=== PATIENT | female | born 1930 | race Caucasian/White ===

== ENCOUNTER 2017-03-13 11:46 | Inpatient (IN) | payer OTHER, MEDICAID ==
[~2017-03-13] VITALS: Ht 157.5 cm; Wt 47.6 kg
[2017-03-13 11:57] VITALS: BP_SYST 152
[2017-03-13 13:02] LABS: BASOPHILS % (AUTO) 0.2 % (0.0-2.0); EOSINOPHILS % (AUTO) 0.6 % (0.0-4.0); HEMOGLOBIN 12.9 g/dL (12.0-16.0); LYMPHOCYTES # (AUTO) 0.6 K/uL (1.0-5.5); LYMPHOCYTES % (AUTO) 11.1 % (20.5-51.5); MEAN CORPUSCULAR HEMOGLOBIN 30 pg (27-31); MEAN CORPUSCULAR HGB CONC 33 % (32-36); MEAN CORPUSCULAR VOLUME 91 fL (79.0-98.0); MONOCYTES # (AUTO) 0.5 K/uL (0.0-1.0); MONOCYTES % (AUTO) 8.3 % (1.7-9.3); NEUTROPHILS # (AUTO) 4.7 K/uL (1.8-7.7); NEUTROPHILS % (AUTO) 79.8 % (40.0-70.0); PLATELET COUNT (AUTO) 106 K/uL (130-430); RED BLOOD CELL COUNT(AUTO) 4.28 MIL/uL (4.2-6.2); RED CELL DISTRIBUTION WIDTH 12.8 % (9.0-15.0); WHITE BLOOD COUNT (AUTO) 5.8 K/uL (4.8-10.8)
[2017-03-13 13:19] LABS: ANION GAP 11 (5-15); CALCIUM 9.2 mg/dL (8.4-11.0); CHLORIDE 100 mmol/L (98-107); CREATININE 0.94 mg/dL (0.55-1.30); GLUCOSE 343 mg/dL (70-99); POTASSIUM 4.3 mmol/L (3.5-5.1); SODIUM SERUM 138 mmol/L (136-145); UREA NITROGEN, BLOOD 17 mg/dL (8-21)
[2017-03-13 13:43] LABS: TOTAL BILIRUBIN 0.5 mg/dL (0.0-1.0)
[2017-03-13 13:44] LABS: ALBUMIN 3.8 g/dL (3.4-4.8); ASPARTATE AMINOTRANSFERASE 12 U/L (10-37)
[2017-03-13 13:53] LABS: ALANINE AMINOTRANSFERASE 15 U/L (12-78)
[2017-03-13] MEDS ORDERED: NACL 0.9% 1,000 ML IV ONE (14:30)
[2017-03-13] MEDS ORDERED: GLUXR500 PO (14:36)
[2017-03-13] MEDS ORDERED: MEMA10TA12 PO (14:36)
[2017-03-13] MEDS ORDERED: DONE10TA44 PO (14:36)
[2017-03-13] MEDS ORDERED: MORPHINE 2 MG/ML INJ. SYRINGE IVP ONE (14:45)
[2017-03-13 15:13] LABS: BILIRUBIN,URINE NEGATIVE (NEGATIVE); BLOOD, URINE 1+ (NEGATIVE); CLARITY/URINE CLEAR (CLEAR); COLOR,URINE YELLOW (YELLOW); GLUCOSE,URINE 3+ (NEGATIVE); KETONES,URINE NEGATIVE (NEGATIVE); LEUKOCYTE ESTERASE ,URINE NEGATIVE (NEGATIVE); NITRITE, URINE NEGATIVE (NEGATIVE); PROTEIN URINE NEGATIVE (NEGATIVE); UROBILINOGEN,URINE 0.2 (0.2-1.0)
[2017-03-13 15:23] LABS: BACTERIA,URINE MODERATE /HPF (None Seen); MUCUS,URINE 1+ /LPF (None Seen)
[2017-03-13 15:32] VITALS: BP_SYST 144
[2017-03-13 17:39] LABS: BILIRUBIN,URINE NEGATIVE (NEGATIVE); BLOOD, URINE TRACE (NEGATIVE); CLARITY/URINE CLEAR (CLEAR); COLOR,URINE STRAW (YELLOW); GLUCOSE,URINE 2+ (NEGATIVE); KETONES,URINE NEGATIVE (NEGATIVE); LEUKOCYTE ESTERASE ,URINE NEGATIVE (NEGATIVE); NITRITE, URINE NEGATIVE (NEGATIVE); PROTEIN URINE NEGATIVE (NEGATIVE); UROBILINOGEN,URINE 0.2 (0.2-1.0)
[2017-03-13] MEDS: cefTRIAXone 1 GM IVPB PREMIX 50 ML IV SCH (17:39)
[2017-03-13] MEDS: D5/0.45 NS 1,000 ML IV SCH (17:39)
[2017-03-13 17:40] LABS: BACTERIA,URINE FEW /HPF (None Seen); MUCUS,URINE None Seen /LPF (None Seen); RBC,URINE NONE SEEN /HPF (0-3); WBC,URINE NONE SEEN /HPF (0-3)
[2017-03-13] MEDS ORDERED: LORazepam 2 MG/ML VIAL IVP PRN (19:30)
[2017-03-13 20:00] VITALS: BP_SYST 146
[2017-03-13] MEDS: DONEPEZIL HCL 5 MG TABLET (ARICEPT) PO SCH (20:44)
[2017-03-13] MEDS: MEMANTINE HCL 5 MG TABLET PO SCH (20:45)
[2017-03-13] MEDS: INSULIN REGULAR, HUMAN 100 UNITS/ML, 10 ML VIAL (novoLIN R) SUBCUT PRN (20:54)
[2017-03-14 00:04] VITALS: BP_SYST 133
[2017-03-14 04:11] VITALS: BP_SYST 108
[2017-03-14] MEDS: INSULIN REGULAR, HUMAN 100 UNITS/ML, 10 ML VIAL (novoLIN R) SUBCUT PRN ×4 (06:03→22:00)
[2017-03-14] MEDS: D5/0.45 NS 1,000 ML IV SCH ×2 (06:09→21:56)
[2017-03-14] MEDS: MEMANTINE HCL 5 MG TABLET PO SCH ×2 (08:09→21:55)
[2017-03-14 08:43] VITALS: BP_SYST 121
[2017-03-14 12:00] VITALS: BP_SYST 130
[2017-03-14 17:16] VITALS: BP_SYST 139
[2017-03-14] MEDS: cefTRIAXone 1 GM IVPB PREMIX 50 ML IV SCH (17:37)
[2017-03-14 20:00] VITALS: BP_SYST 135
[2017-03-14] MEDS: DONEPEZIL HCL 5 MG TABLET (ARICEPT) PO SCH (21:56)
[2017-03-15] VITALS (7 sets, daily range): BP systolic 119–158
[2017-03-15] MEDS: IPRATROPIUM BROM 0.5 MG/2.5 ML VIAL.NEB (ATROVENT) INH SCH ×4 (03:00→15:55)
[2017-03-15] MEDS: INSULIN REGULAR, HUMAN 100 UNITS/ML, 10 ML VIAL (novoLIN R) SUBCUT PRN ×3 (06:17→16:56)
[2017-03-15] MEDS: MEMANTINE HCL 5 MG TABLET PO SCH (08:24)
[2017-03-15] MEDS: D5/0.45 NS 1,000 ML IV SCH (16:30)
[2017-03-15] MEDS: cefTRIAXone 1 GM IVPB PREMIX 50 ML IV SCH (16:56)
== END 2017-03-15 17:45 | disposition home or self-care (01) | DRG 690 ==
LOC: SED 11:46 → STU 14:29 → SMU 03-15 15:26
PROVIDERS: ADMIT Internal Medicine Infectious Disease; ATTEND Internal Medicine Infectious Disease
DX: N39.0 Urinary tract infection, site not specified (principal); J44.9 Chronic obstructive pulmonary disease, unspecified; G30.9 Alzheimer's disease, unspecified; F02.80 Dementia in other diseases classified elsewhere, unspecified severity, without behavioral disturbance, psychotic disturbance, mood disturbance, and anxiety; M19.90 Unspecified osteoarthritis, unspecified site; W01.0XXA Fall on same level from slipping, tripping and stumbling without subsequent striking against object, initial encounter; E11.9 Type 2 diabetes mellitus without complications; I10 Essential (primary) hypertension; M25.561 Pain in right knee; R26.2 Difficulty in walking, not elsewhere classified; R04.0 Epistaxis; Y93.89 Activity, other specified; Y92.89 Other specified places as the place of occurrence of the external cause; Y99.8 Other external cause status; Z83.3 Family history of diabetes mellitus; Z87.891 Personal history of nicotine dependence; Z90.710 Acquired absence of both cervix and uterus
CPT/HCPCS: 36415; 70450-TC; 71010; 73060-TC; 73090; 80053; 81000-TC; 82550-TC; 82962; 83036; 84484; 85025; 87040-TC; 87081; 87086; 93005; 93306; 93880; 94640; 96361; 96374; 96375; 97110-GP; 97530-GP; 99285; J0696; J1815; J2060; J2270; J7030

== ENCOUNTER 2018-05-30 10:53 | Emergency (ER) | payer OTHER, MEDICAID ==
[~2018-05-30] VITALS: Ht 157.5 cm; Wt 45.4 kg
[~2018-05-30 10:53] MED LIST: DONE10TA44 PO; GLUXR500 PO; MEMA10TA PO
[2018-05-30 10:55] VITALS: BP_SYST 130
[2018-05-30] MEDS ORDERED: NACL 0.9% 1,000 ML IV ONE (11:04)
[2018-05-30] MEDS ORDERED: DONE10TA44 PO (11:15)
[2018-05-30] MEDS ORDERED: GLIP5TAB13 PO (11:15)
[2018-05-30] MEDS ORDERED: ALPR0.5T PO (11:15)
[2018-05-30] MEDS ORDERED: METF1000 PO (11:15)
[2018-05-30 11:33] LABS: BASOPHILS % (AUTO) 0.4 % (0.0-2.0); HEMATOCRIT 39.2 % (36-48); HEMOGLOBIN 12.9 g/dL (12.0-16.0); LYMPHOCYTES # (AUTO) 1.6 K/uL (1.0-5.5); LYMPHOCYTES % (AUTO) 34.5 % (20.5-51.5); MEAN CORPUSCULAR HEMOGLOBIN 31 pg (27-31); MEAN CORPUSCULAR HGB CONC 33 % (32-36); MEAN CORPUSCULAR VOLUME 93 fL (79.0-98.0); MONOCYTES # (AUTO) 0.4 K/uL (0.0-1.0); MONOCYTES % (AUTO) 8.2 % (1.7-9.3); NEUTROPHILS # (AUTO) 2.5 K/uL (1.8-7.7); NEUTROPHILS % (AUTO) 55.9 % (40.0-70.0); PLATELET COUNT (AUTO) 140 K/uL (130-430); RED BLOOD CELL COUNT(AUTO) 4.21 MIL/uL (4.2-6.2); RED CELL DISTRIBUTION WIDTH 13.1 % (9.0-15.0); WHITE BLOOD COUNT (AUTO) 4.5 K/uL (4.8-10.8)
[2018-05-30 11:57] LABS: ALANINE AMINOTRANSFERASE 12 U/L (12-78); ALBUMIN 3.6 g/dL (3.4-4.8); ALCOHOL, BLOOD < 3 mg/dL (<10); AMYLASE 79 U/L (0-100); ANION GAP 9 (5-15); ASPARTATE AMINOTRANSFERASE 10 U/L (10-37); CALCIUM 8.9 mg/dL (8.4-11.0); CHLORIDE 104 mmol/L (98-107); CREATININE 0.75 mg/dL (0.55-1.30); GLUCOSE 85 mg/dL (70-99); LIPASE 151 U/L (73-393); POTASSIUM 3.5 mmol/L (3.5-5.1); SODIUM SERUM 141 mmol/L (136-145); TOTAL BILIRUBIN 0.3 mg/dL (0.0-1.0); UREA NITROGEN, BLOOD 22 mg/dL (8-21)
[2018-05-30 12:09] LABS: INR 1.1 (0.8-1.2); PROTHROMBIN TIME 11.1 SECS (9.5-12.5)
[2018-05-30 13:45] VITALS: BP_SYST 128
== END 2018-05-30 13:45 | disposition home or self-care (01) ==
LOC: SED 10:53
DX: R53.1 Weakness (principal); I95.9 Hypotension, unspecified; F03.90 Unspecified dementia, unspecified severity, without behavioral disturbance, psychotic disturbance, mood disturbance, and anxiety; E11.9 Type 2 diabetes mellitus without complications; Z79.899 Other long term (current) drug therapy
CPT/HCPCS: 36415; 70450; 71045; 80053; 82150; 82550; 83605; 83690; 84484; 85025; 85610; 85730; 87040; 93005; 99284; G0482; J7030

== ENCOUNTER 2018-06-08 10:33 | Emergency (ER) | payer OTHER, MEDICAID ==
[~2018-06-08] VITALS: Ht 157.5 cm; Wt 36.3 kg
[2018-06-08 10:33] VITALS: BP_SYST 174
[~2018-06-08 10:33] MED LIST changes: +ALPR0.5T PO; +GLIP5TAB13 PO; -GLUXR500 PO; +METF1000 PO
[2018-06-08 11:09] VITALS: BP_SYST 156
== END 2018-06-08 11:09 | disposition home or self-care (01) ==
LOC: SED 10:33
DX: S80.01XA Contusion of right knee, initial encounter (principal); S00.81XA Abrasion of other part of head, initial encounter; F03.90 Unspecified dementia, unspecified severity, without behavioral disturbance, psychotic disturbance, mood disturbance, and anxiety; E11.9 Type 2 diabetes mellitus without complications; Z79.899 Other long term (current) drug therapy; W18.39XA Other fall on same level, initial encounter; Y93.89 Activity, other specified; Y92.89 Other specified places as the place of occurrence of the external cause; Y99.8 Other external cause status
CPT/HCPCS: 73564; 82962; 99283

== ENCOUNTER 2018-11-08 08:22 | Emergency (ER) | payer OTHER, MEDICAID ==
[~2018-11-08] VITALS: Ht 152.4 cm; Wt 45.4 kg
[2018-11-08 08:25] VITALS: BP_SYST 121
[2018-11-08 09:25] VITALS: BP_SYST 116
== END 2018-11-08 09:25 | disposition home or self-care (01) ==
LOC: SED 08:22
DX: S70.01XA Contusion of right hip, initial encounter (principal); M16.11 Unilateral primary osteoarthritis, right hip; F03.90 Unspecified dementia, unspecified severity, without behavioral disturbance, psychotic disturbance, mood disturbance, and anxiety; G89.29 Other chronic pain; M54.5 Low back pain; E11.9 Type 2 diabetes mellitus without complications; Z79.899 Other long term (current) drug therapy; X58.XXXA Exposure to other specified factors, initial encounter; Y93.89 Activity, other specified; Y92.89 Other specified places as the place of occurrence of the external cause; Y99.8 Other external cause status
CPT/HCPCS: 73502; 99283